=== PATIENT | male | born 1975 ===

== ENCOUNTER 2017-03-09 12:13 | Emergency (ER) | payer MEDICAID ==
[2017-03-09 13:16] LABS: BASO # 0.1 K/uL (0.0-0.2); BASO % 1.4 % (0.0-2.0); EOS # 0.1 K/uL (0.0-0.7); EOS % 1.9 % (0.0-4.0); HEMATOCRIT 43.2 % (35.0-51.0); LYMPH # 2.2 K/uL (1.0-4.3); LYMPH % 33.8 % (20.0-40.0); MEAN CORPUSCULAR HEMOGLOBIN 33.4 pg (27.0-31.0); MEAN PLATELET VOLUME 8.7 fL (7.2-11.7); MONO # 0.5 K/uL (0.0-0.8); MONO % 7.5 % (0.0-10.0); NRBC % 0.1 % (0.0-2.0); RED CELL DISTRIBUTION WIDTH 13.2 % (11.5-14.5); WHITE BLOOD COUNT 6.6 K/uL (4.8-10.8)
--- NOTE | 2017-03-09 13:17 | RAD ---
HISTORY: CP COMPARISON: Chest x-ray performed 06/06/15 TECHNIQUE: Chest, one view. FINDINGS: Examination limited by habitus. LUNGS: No focal consolidation. Please note that chest x-ray has limited sensitivity for the detection of pulmonary masses. PLEURA: No significant pleural effusion identified. No definite pneumothorax . CARDIOVASCULAR: The cardiomediastinal silhouette appears within normal limits of size. OSSEOUS STRUCTURES: No acute osseous abnormality identified. VISUALIZED UPPER ABDOMEN: Unremarkable. OTHER FINDINGS: None. IMPRESSION: No focal consolidation, significant pleural effusion, or definite pneumothorax identified.
[2017-03-09 13:18] LABS: MEAN CELL VOLUME 98.2 fL (80.0-94.0)
[2017-03-09 13:19] LABS: RBC URINE < 1 /hpf (0-3); URINE BILIRUBIN NEGATIVE (NEGATIVE); URINE BLOOD NEGATIVE (NEGATIVE); URINE COLOR Yellow (YELLOW); URINE GLUCOSE (UA) NORMAL (Normal); URINE KETONE NEGATIVE (NEGATIVE); URINE LEUKOCYTE ESTERASE NEG Leu/uL (Negative); URINE PROTEIN NEGATIVE (NEGATIVE); URINE UROBILINOGEN NORMAL mg/dL (0.2-1.0)
[2017-03-09 13:27] LABS: CHLORIDE 99 mmol/L (98-107)
[2017-03-09 13:28] LABS: POTASSIUM 4.2 mmol/L (3.6-5.2); SODIUM 138 mmol/L (132-148)
[2017-03-09 13:30] LABS: ALB/GLOB RATIO 1.2 (1.0-2.1); ALKALINE PHOSPHATASE 73 U/L (38-126); AST/SGOT 25 U/L (17-59); BILIRUBIN,TOTAL 0.7 mg/dL (0.2-1.3); CARBON DIOXIDE 28 mmol/L (22-30); GFR AFRICAN-AMERICAN > 60; TOTAL PROTEIN 7.2 g/dL (6.3-8.3)
[2017-03-09 13:31] LABS: ALT/SGPT 28 U/L (21-72); BLOOD UREA NITROGEN 5 mg/dL (9-20); CALCIUM 9.1 mg/dl (8.6-10.4); GLUCOSE,RANDOM 86 mg/dL (75-110)
[2017-03-09 14:10] LABS: THYROID STIMULATING HORMONE 1.08 mIU/L (0.46-4.68)
--- NOTE | 2017-03-09 14:17 | C.PDOC ---
History Of Present Illness Patient presents to ED c/o intermittent chest pain and palpitations for the past 2 weeks. Pt is currently asymptomatic. He denies SOB, cough, fever, andominal pain, nausea/vomiting. Pt has been seen in this ED multiple times for the same complaint in the past,- has not yet followed up with cardiology. He admits to cocaine use in the past, but no recent cocaine use. Time Seen by Provider: 03/09/17 12:38 Chief Complaint (Nursing): Chest Pain History Per: Patient History/Exam Limitations: no limitations Onset/Duration Of Symptoms: Days, Intermittent Episodes Current Symptoms Are (Timing): Gone Severity: Moderate Recent travel outside of the [place]: No Past Medical History Reviewed: Historical Data, Nursing Documentation, Vital Signs Vital Signs: Last Vital Signs Temp 98.0 F 03/09/17 14:37 Pulse 53 L 03/09/17 14:37 Resp 18 03/09/17 14:37 BP 103/72 03/09/17 14:37 Pulse Ox 100 03/09/17 14:37 - Medical History PMH: No Chronic Diseases - [facility] Procedures ALCOHOL DETOXIFICATION (04/15/13) Family History: States: No Known Family Hx - Social History Hx Tobacco Use: Yes (daily) Hx Alcohol Use: Yes (daily) Hx Substance Use: Yes (prior cocaine use, none recently ) - Immunization History Hx Tetanus Toxoid Vaccination: No Hx Influenza Vaccination: No Hx Pneumococcal Vaccination: No Review Of Systems Except As Marked, All Systems Reviewed And Found Negative. Constitutional: Negative for: Fever Cardiovascular: Positive for: Chest Pain (currently resolved), Palpitations ( currenlty resolved) Respiratory: Negative for: Cough, Shortness of Breath Gastrointestinal: Negative for: Nausea, Vomiting, Abdominal Pain Physical Exam - Physical Exam Appears: Well, Non-toxic, No Acute Distress Skin: Warm, Dry, No Rash Head: Normacephalic Oral Mucosa: Moist Neck: Normal, Supple Chest: Symmetrical, No Tenderness Cardiovascular: Rhythm Regular Respiratory: Normal Breath Sounds, No Rales, No Rhonchi, No Wheezing Gastrointestinal/Abdominal: Normal Exam, Bowel Sounds, Soft, No Tenderness Extremity: Normal ROM, No Pedal Edema, No Calf Tenderness, No Deformity Extremity: Bilateral: Atraumatic Pulses: Left Dorsalis Pedis: Normal, Right Dorsalis Pedis: Normal Neurological/Psych: Oriented x3 ED Course And Treatment - Laboratory Results Result Diagrams: 03/09/17 13:11 03/09/17 13:11 ECG: Interpreted By Me, Viewed By Me (NSR 62 bpm, normal axis, no acute ST/T wave changes) ECG Rhythm: Sinus Rhythm ECG Interpretation: Normal O2 Sat by Pulse Oximetry: 99 (room air) Pulse Ox Interpretation: Normal - Other Rad CXR X-Ray: Viewed By Me, Read By Radiologist Interpretation: Accession No. : [id number]. Patient Name / ID : TACHO MERCEDES / [id number]. Exam Date : 03/09/2017 12:42:30 ( Approved ). Study Comment : Sex / Age : M / 41Y. Creator : Melony Hillman MD. Dictator : Melony Hillman MD. Volcanologist : Financial Report Service Sales Agent : Melony Hillman MD. Approver2 : Report Date : 03/09/2017 13:15:44. My Comment : . HISTORY: CP. COMPARISON: Chest x-ray performed 06/06/15. TECHNIQUE: Chest, one view. FINDINGS: Examination limited by habitus. LUNGS: No focal consolidation. Please note that chest x-ray has limited sensitivity for the detection of pulmonary masses. PLEURA: No significant pleural effusion identified. No definite pneumothorax . CARDIOVASCULAR: The cardiomediastinal silhouette appears within normal limits of size. OSSEOUS STRUCTURES: No acute osseous abnormality identified. VISUALIZED UPPER ABDOMEN: Unremarkable. OTHER FINDINGS: None. IMPRESSION: No focal consolidation, significant pleural effusion, or definite pneumothorax identified. Progress Note: Blood work, CXR, EKG, UA, UDS ordered and reviewed. Reevaluation Time: 14:40 Reassessment Condition: Improved (On reassessment, patient continues to be asymptomatic. Blood work, including d-dimer, WNL, and CXR and EKG unremarkable. Patient is well appearing, with normal vitals. He is comfortable being discharged home, was instructed to follow up with cardiology within 1 week. He understands he should return to ED if symptoms return/worsen. ) Disposition Counseled Patient/Family Regarding: Studies Performed, Diagnosis, Need For Followup - Disposition Referrals: [facility] [Outside] Ann Patrick MD [Staff Provider] - Disposition: HOME/ ROUTINE Disposition Time: 14:40 Condition: STABLE Additional Instructions: FOLLOW UP WITH CARDIOLOGY WITHIN 1 WEEK RETURN TO ER IF SYMPTOMS WORSEN Instructions: Palpitations (ED) Forms: General Discharge Instructions Print Language: GUYANESE - POA Present On Arrival: None - Clinical Impression Clinical Impression: Chest pain, Palpitations - Scribe Statement The provider has reviewed the documentation as recorded by the Zabrina Rocha Provider Attestation: All medical record entries made by the Zabrina were at my direction and personally dictated by me. I have reviewed the chart and agree that the record accurately reflects my personal performance of the history, physical exam, medical decision making, and the department course for this patient. I have also personally directed, reviewed, and agree with the discharge instructions and disposition.
[2017-03-09 14:38] VITALS: BP 103/72; PULSE 53; RESP 18; TEMP 98
--- NOTE | 2017-03-13 11:48 | CARD ---
APPROVED REPORT EKG Measurement Heart [id number] <Conclusion> Normal sinus rhythm Voltage criteria for left ventricular hypertrophy Abnormal ECG
[2017-03-13 23:27] VITALS: O2SAT 99
== END 2017-03-09 14:44 | disposition home or self-care (01) ==
LOC: C.ER 12:13
DX: R07.9 Chest pain, unspecified (principal); R00.2 Palpitations

== ENCOUNTER 2017-04-10 09:10 | Emergency (ER) | payer MEDICAID ==
[2017-04-10 09:15] VITALS: RESP 18
[2017-04-10 09:48] LABS: SQUAMOUS EPITHIAL < 1 /hpf (0-5); URINE BACTERIA RARE (<OCC); URINE BILIRUBIN 1+ (NEGATIVE); URINE BLOOD 1+ (NEGATIVE); URINE CLARITY Hazy (Clear); URINE COLOR Amber (YELLOW); URINE GLUCOSE (UA) NORMAL (Normal); URINE LEUKOCYTE ESTERASE TRACE Leu/uL (Negative); URINE NITRATE NEGATIVE (NEGATIVE); URINE PROTEIN 1+ mg/dL (NEGATIVE)
[2017-04-10] MEDS ORDERED: Sodium Chloride 0.9% 1,000 ML IV ONE ×2 (09:59→10:46)
[2017-04-10 10:20] LABS: BASO # 0.1 K/uL (0.0-0.2); BASO % 0.5 % (0.0-2.0); EOS # 0.1 K/uL (0.0-0.7); EOS % 0.9 % (0.0-4.0); HEMOGLOBIN 14.9 g/dL (12.0-18.0); LYMPH % 12.9 % (20.0-40.0); MEAN CELL VOLUME 97.3 fL (80.0-94.0); MEAN CORPUSCULAR HEMOGLOBIN 33.3 pg (27.0-31.0); MEAN CORPUSCULAR HGB CONC 34.2 g/dL (33.0-37.0); MEAN PLATELET VOLUME 8.9 fL (7.2-11.7); MONO # 1.2 K/uL (0.0-0.8); MONO % 8.2 % (0.0-10.0); NEUT # 11.7 K/uL (1.8-7.0); NEUT % 77.5 % (50.0-75.0); RBC 4.47 Mil/uL (4.40-5.90); WHITE BLOOD COUNT 15.1 K/uL (4.8-10.8)
[2017-04-10 10:29] LABS: ALBUMIN 4.3 g/dL (3.5-5.0)
[2017-04-10 10:31] LABS: GFR AFRICAN-AMERICAN > 60; GFR NON-AFRICAN AMERICAN > 60
[2017-04-10 10:32] LABS: ALB/GLOB RATIO 1.2 (1.0-2.1); ALT/SGPT 24 U/L (21-72); AST/SGOT 17 U/L (17-59); BLOOD UREA NITROGEN 13 mg/dL (9-20)
[2017-04-10 10:33] LABS: CALCIUM 9.2 mg/dl (8.6-10.4)
[2017-04-10] MEDS ORDERED: cefTRIAXone IV 1 gm in Dextros 50 ML IVPB STA (10:46)
[2017-04-10] MEDS ORDERED: Sodium Chloride 0.9% 1,000 ML ONE (11:02)
[2017-04-10] MEDS ORDERED: cefTRIAXone IV 1 gm in Dextros 50 ML IVPB ONE (11:55)
--- NOTE | 2017-04-10 11:58 | C.PDOC ---
Time Seen by Provider: 04/10/17 09:33 Chief Complaint (Nursing): Male Genitourinary History Per: Patient Onset/Duration Of Symptoms: Days (2) Current Symptoms Are (Timing): Still Present Severity: Moderate Associated Symptoms: Fever (subjective), Urinary Symptoms Alleviating Factors: None Recent travel outside of the [place]: No Additional History Per: Prior Records Past Medical History Reviewed: Historical Data, Nursing Documentation, Vital Signs Vital Signs: Last Vital Signs Temp 99 F 04/10/17 09:13 Pulse 80 04/10/17 09:13 Resp 18 04/10/17 09:13 BP 108/79 04/10/17 09:13 Pulse Ox 99 04/10/17 09:13 - Medical History PMH: No Chronic Diseases Surgical History: No Surg Hx - [facility] Procedures ALCOHOL DETOXIFICATION (04/15/13) Family History: States: Unknown Family Hx - Social History Hx Tobacco Use: Yes (daily) Hx Alcohol Use: Yes (daily) Hx Substance Use: Yes (prior cocaine use, none recently ) - Immunization History Hx Tetanus Toxoid Vaccination: No Hx Influenza Vaccination: No Hx Pneumococcal Vaccination: No Review Of Systems Except As Marked, All Systems Reviewed And Found Negative. Constitutional: Positive for: Fever, Malaise ENT: Positive for: Nose Congestion. Negative for: Throat Pain Cardiovascular: Negative for: Chest Pain Respiratory: Negative for: Cough, Shortness of Breath Gastrointestinal: Negative for: Vomiting, Abdominal Pain Genitourinary: Positive for: Dysuria, Frequency. Negative for: Penile Discharge , Scrotal Pain Musculoskeletal: Negative for: Neck Pain, Back Pain Skin: Negative for: Rash Neurological: Negative for: Weakness, Numbness, Seizures, Altered Mental Status , Headache Physical Exam - Physical Exam Appears: Non-toxic, No Acute Distress Skin: Normal Color, Warm, Dry, No Rash Head: Atraumatic, Normacephalic Eye(s): bilateral: Normal Inspection, PERRL, EOMI Oral Mucosa: Moist Neck: Normal ROM, Supple Cardiovascular: Rhythm Regular Respiratory: Normal Breath Sounds, No Accessory Muscle Use Gastrointestinal/Abdominal: Soft, No Tenderness Back: No CVA Tenderness Male Genital: No Testicular Tenderness, No Testicular Swelling, No Scrotal Swelling, Circumcised Extremity: Normal ROM Neurological/Psych: Oriented x3, Normal Cognition, Normal Motor, Normal Sensation ED Course And Treatment - Laboratory Results Result Diagrams: 04/10/17 10:09 04/10/17 10:09 Lab Interpretation: Abnormal Interpretation Of Abnormal: UTI, urine C&S sent. O2 Sat by Pulse Oximetry: 99 Pulse Ox Interpretation: Normal Progress - Interventions Interventions:: Observation, Intravenous fluid - Medications Administered Intravenous: Other (Rocephin) - Data Reviewed Data Reviewed: Lab, Old records - Patient Status Patient status: Mostly improved - Continuity of Care Discussed patient case with:: Patient, ED Nurse - Patient Plan Patient Plan: Discharge, F/U with PCP Disposition Counseled Patient/Family Regarding: Studies Performed, Diagnosis, Need For Followup, Rx Given - Disposition Referrals: Ralf Walls MD [Staff Provider] - Disposition: HOME/ ROUTINE Disposition Time: 11:58 Condition: IMPROVED Additional Instructions: Drink plenty of fluids. Follow up with your doctor this week. Follow up with a Urologist for further evaluation and treatment. Return to the ER if you develop high fever, lethargy, vomiting, abdominal pain, back pain, trouble urinating, worsening of symptoms or if you have any other concerns. Prescriptions: Ciprofloxacin [Cipro] 1 tab PO BID #14 tab Instructions: Urinary Tract Infection in Men (ED) Forms: [facility] (Cape Verdean), Work Excuse - Clinical Impression Clinical Impression: UTI (urinary tract infection)
[2017-04-10 12:24] VITALS: BP 99/62; PULSE 59; TEMP 98.6; O2SAT 98
== END 2017-04-10 12:45 | disposition home or self-care (01) ==
LOC: C.ER 09:10
DX: N39.0 Urinary tract infection, site not specified (principal)
CPT/HCPCS: 80053; 81001; 85025; 87040; 87086; 87491; 87591; 96361; 96365; 99285; J0696; J7040

== ENCOUNTER 2017-11-05 11:30 | Emergency (ER) | payer MEDICAID ==
[2017-11-05 11:37] VITALS: BP 121/88; PULSE 91; RESP 18; TEMP 98.8; O2SAT 100
--- NOTE | 2017-11-05 12:51 | RAD ---
Chest x-ray two views History: Cough and fever. Comparison: None available. Findings: Biapical pleural thickening with upper lobe granulomatous changes. Mild diffuse increased interstitial lung markings. No gross focal infiltrate or effusion. Heart size within normal limits. Mild degenerative changes in the spine. Impression: No gross focal infiltrate or effusion.
--- NOTE | 2017-11-05 13:03 | C.PDOC ---
History Of Present Illness 42-year-old male, presents to the emergency department with complaints of three- week duration of body aches, and generalized weakness. Patient notes that two days ago, he developed a cough and fever, resulting in him coming to ED for evaluation. Denies numbness/weakness, chest pain, shortness of breath, back/ neck pain, dizziness, headache or any other associated symptoms. No other complaints at this time. Time Seen by Provider: 11/05/17 11:38 Chief Complaint (Nursing): Flu-like Symptoms History Per: Patient History/Exam Limitations: no limitations Onset/Duration Of Symptoms: Days Past Medical History Reviewed: Historical Data, Nursing Documentation, Vital Signs Vital Signs: Last Vital Signs Temp 98.8 F 11/05/17 11:34 Pulse 91 H 11/05/17 11:34 Resp 18 11/05/17 11:34 BP 121/88 11/05/17 11:34 Pulse Ox 100 11/05/17 14:38 - [facility] Procedures ALCOHOL DETOXIFICATION (04/15/13) Family History: States: No Known Family Hx - Social History Hx Tobacco Use: Yes (daily) Hx Alcohol Use: Yes (daily) Hx Substance Use: Yes (prior cocaine use, none recently ) - Immunization History Hx Tetanus Toxoid Vaccination: No Hx Influenza Vaccination: No Hx Pneumococcal Vaccination: No Review Of Systems Constitutional: Positive for: Fever, Weakness, Malaise ENT: Positive for: Nose Discharge, Nose Congestion. Negative for: Ear Pain, Ear Discharge, Throat Pain, Throat Swelling Cardiovascular: Negative for: Chest Pain Respiratory: Positive for: Cough. Negative for: Shortness of Breath Gastrointestinal: Negative for: Vomiting Musculoskeletal: Negative for: Neck Pain, Back Pain Skin: Positive for: Rash Neurological: Negative for: Headache Physical Exam - Physical Exam Appears: Well, Non-toxic, No Acute Distress Skin: Warm, Dry, Rash ((+)malar rash to face) Head: Normacephalic Eye(s): bilateral: PERRL Ear(s): Bilateral: Normal Nose: Normal, No Flaring, No Discharge Oral Mucosa: Moist Lips: Normal Appearing Throat: No Erythema, No Exudate Neck: Normal ROM, Trachea Midline, Supple, Other ((-) meningeal signs) Chest: Symmetrical Cardiovascular: Rhythm Regular, No Murmur Respiratory: Normal Breath Sounds, No Accessory Muscle Use, No Rales, No Rhonchi , No Wheezing Extremity: No Deformity, No Swelling Neurological/Psych: Oriented x3, Normal Speech ED Course And Treatment O2 Sat by Pulse Oximetry: 100 (RA) Pulse Ox Interpretation: Normal Medical Decision Making Medical Decision Making: Plan: Patient treated with Prednisone, Tamiflu and Motrin. On re-evaluation, Patient is resting comfortably, tolerating PO, and is afebrile at this time. Clinical signs and symptoms are not suggestive of sepsis , meningitis, UTI, pneumonia, intra-abdominal pathology, or cellulitis. Patient will be discharged home, and instructed to follow up with his/her physician in 1-2 days without fail. Patient was instructed to return for any worsening symptoms, persistent fever, neck pain, rash, abdominal pain, or vomiting. Disposition - Disposition Referrals: [facility] [Outside] Disposition: HOME/ ROUTINE Disposition Time: 13:00 Condition: GOOD Additional Instructions: Follow up with the medical doctor with 1-2 days. return if worsened. Prescriptions: Ibuprofen [Motrin] 600 mg PO TID #21 tab Oseltamivir [Tamiflu] 75 mg PO BID #9 cap predniSONE [Prednisone] 20 mg PO BID #10 tab Instructions: Flu, Adult (DC) Forms: [employer] (Turkmen), Work Excuse - Clinical Impression Clinical Impression: Influenza - Scribe Statement The provider has reviewed the documentation as recorded by the Scribe (Juan Francisco Giordano) All medical record entries made by the Scribe were at my direction and personally dictated by me. I have reviewed the chart and agree that the record accurately reflects my personal performance of the history, physical exam, medical decision making, and the department course for this patient. I have also personally directed, reviewed, and agree with the discharge instructions and disposition.
== END 2017-11-05 13:15 | disposition home or self-care (01) ==
LOC: C.ER 11:30
DX: J11.1 Influenza due to unidentified influenza virus with other respiratory manifestations (principal); Z72.0 Tobacco use